=== PATIENT | male | born 1950 | race Caucasian/White ===

== ENCOUNTER 2022-04-16 18:44 | Emergency (ER) | payer MEDICARE ==
[~2022-04-16] VITALS: Ht 177.8 cm; Wt 81.6 kg
[2022-04-16] MEDS ORDERED: HYDROCODONE-AC1 EAC1 PO (21:53)
[2022-04-16] MEDS ORDERED: AMOX-CLAV 875-1 EACH PO (21:53)
== END 2022-04-16 22:30 | disposition home or self-care (01) ==
LOC: ED 18:44
DX: S51.851A Open bite of right forearm, initial encounter (principal); W54.0XXA Bitten by dog, initial encounter; Y93.89 Activity, other specified; Y92.89 Other specified places as the place of occurrence of the external cause; Y99.8 Other external cause status

== ENCOUNTER → 2022-04-17 | Outpatient (CLI) | payer MEDICARE ==
[~2022-04-17] MED LIST: AMOX-CLAV 875-1 EACH PO; HYDROCODONE-AC1 EAC1 PO
== END | disposition home or self-care (01) ==
LOC: WOUNDCARE 08:47
PROVIDERS: ATTEND Nurse Practitioner Family
DX: S51.851A Open bite of right forearm, initial encounter (principal); S51.831A Puncture wound without foreign body of right forearm, initial encounter; N40.0 Benign prostatic hyperplasia without lower urinary tract symptoms; W54.0XXA Bitten by dog, initial encounter; Y93.9 Activity, unspecified; Y92.89 Other specified places as the place of occurrence of the external cause; Y99.8 Other external cause status

== ENCOUNTER → 2022-04-24 | Outpatient (CLI) | payer MEDICARE | END | disposition home or self-care (01) | LOC: WOUNDCARE 03:53 | PROVIDERS: ATTEND Surgery | DX: S51.831D Puncture wound without foreign body of right forearm, subsequent encounter (principal); S51.851D Open bite of right forearm, subsequent encounter; N40.0 Benign prostatic hyperplasia without lower urinary tract symptoms; W54.0XXD Bitten by dog, subsequent encounter ==

== ENCOUNTER → 2022-05-01 | Outpatient (CLI) | payer MEDICARE | END | disposition home or self-care (01) | LOC: WOUNDCARE 00:40 | PROVIDERS: ATTEND Nurse Practitioner Family | DX: S51.851D Open bite of right forearm, subsequent encounter (principal); S81.831D Puncture wound without foreign body, right lower leg, subsequent encounter; N40.0 Benign prostatic hyperplasia without lower urinary tract symptoms; W54.0XXD Bitten by dog, subsequent encounter ==

== ENCOUNTER → 2022-05-08 | Outpatient (CLI) | payer MEDICARE | END | disposition home or self-care (01) | LOC: WOUNDCARE 01:10 | PROVIDERS: ATTEND Nurse Practitioner Family | DX: S51.851D Open bite of right forearm, subsequent encounter (principal); N40.0 Benign prostatic hyperplasia without lower urinary tract symptoms; W54.0XXD Bitten by dog, subsequent encounter ==

== ENCOUNTER → 2022-05-22 | Outpatient (CLI) | payer MEDICARE | END | disposition home or self-care (01) | LOC: WOUNDCARE 02:12 | PROVIDERS: ATTEND Nurse Practitioner Family | DX: S51.831D Puncture wound without foreign body of right forearm, subsequent encounter (principal); N40.0 Benign prostatic hyperplasia without lower urinary tract symptoms; W54.0XXD Bitten by dog, subsequent encounter ==